=== PATIENT | male | born 1980 | race Caucasian/White ===

== ENCOUNTER 2019-07-30 18:40 | Emergency (ER) | payer OTHER, SELFPAY ==
[2019-07-30] VITALS (7 sets, daily range): BP systolic 117–152; BP diastolic 63–98; PULSE 75–96; RESP 13–28; TEMP 36.9; O2SAT 95–100
--- NOTE | ~2019-07-30 | XR_ITS ---
EXAMINATION: XR foot RT min 3V DATE: 07/30/2019 19:42 INDICATION: Medial right foot pain after walking for 2 hours TECHNIQUE: Dorsoplantar, two oblique and lateral views of the right foot were obtained. COMPARISON: None. FINDINGS: Alignment is normal. No fracture. No periosteal reaction. 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 Small Achilles calcaneal spur. Soft tissues are unremarkable. IMPRESSION: 1. No acute osseous abnormality. Reviewed, dictated and finalized at location A.
--- NOTE | ~2019-07-30 | XR_ITS ---
EXAMINATION: XR wrist LT min 3V DATE: 07/30/2019 19:43 INDICATION: Medial left wrist pain TECHNIQUE: Posteroanterior, ulnar deviation, oblique, and lateral views of the left wrist were obtain ed. COMPARISON: none FINDINGS: 3 mm ulnar minus variance. Alignment is otherwise normal. No fracture. Joint spaces are normal. Soft tissues are unremarkable. IMPRESSION: 1. No acute osseous abnormality. Reviewed, dictated and finalized at location A.
--- NOTE | ~2019-07-30 | XR_ITS ---
EXAMINATION: XR foot LT min 3V DATE: 07/30/2019 19:43 INDICATION: Blister at the plantar surface of the left fourth toe TECHNIQUE: Dorsoplantar, two oblique and lateral views of the left foot were obtained. COMPARISON: None. FINDINGS: Alignment is normal. No cortical erosions or periosteal reaction. Small corticated ossicles near the tips of the medial and lateral malleoli, likely sequela of old trauma. No acute fracture. Mild osteoa rthritis at the first metatarsophalangeal joint. Soft tissues are unremarkable. IMPRESSION: 1. No acute osseous abnormality. Reviewed, dictated and finalized at location A.
--- NOTE | 2019-07-30 19:17 | ECG_ITS ---
Measurements Intervals [place] Rate: 88 P: 9 DC: 150 QRS: 57 QRSD: 113 T: 38 QT: 374 QTc: 454 Interpretive Statements SINUS RHYTHM INTRAVENTRICULAR CONDUCTION DELAY EARLY PRECORDIAL R/S TRANSITION MINIMAL Q WAVES- INFERIOR LEADS BORDERLINE ECG Electronically Signed On 07-31-2019 7:00:38 CDT by Harvinder Aguilar D.O.
--- NOTE | 2019-07-30 19:21 | PC.NURSE ---
Assumed care of pt at this time. Report from PRATEEK Mendez
--- NOTE | 2019-07-30 19:26 | ED.GENADULT ---
HPI - General Adult General Chief complaint: Unspecified Stated complaint: FOOT PAIN/ DEHYDRATION Time Seen by Provider: 07/30/19 19:00 Source: patient Mode of arrival: EMS Limitations: no limitations History of Present Illness HPI narrative: This patient is a 38 year old male who presents for evaluation of dehydration. He states his car broke down so he has been walking for 2 hours in order to get help. He states just prior to arrival he started to feel dizzy and his feet started to hurt so he called 911. He thinks that he is just overheated. He denies chest pain, shortness of breath , abdominal pain, nausea or vomiting. Related Data Allergies Allergy/AdvReac Type Severity Reaction Status Date / Time CYCLOBENZAPRINE HCL Allergy Unknown Unknown Uncoded 07/30/19 19:02 Review of Systems Review of Systems: All systems reviewed & are unremarkable except as noted in HPI and below Constitutional: Constitutional: Denies chills, Denies fever(s) and Reports weakness ENT: Reports dizziness Cardiovascular: Cardiovascular: Denies chest pain Respiratory: Respiratory: Denies cough and Denies dyspnea Gastrointestinal: Gastrointestinal: Denies abdominal pain, Denies nausea and Denies vomiting Musculoskeletal: Musculoskeletal: Reports arthralgias PMFSH Past Medical History Medical History (Updated 07/31/19 @ 00:00 by Kei Lau) Hepatitis C Surgical History Surgical History (Updated 07/30/19 @ 19:26 by Annalise Kumar MD) History of liver biopsy Social History Social History (Updated 07/30/19 @ 19:27 by Annalise Kumar MD) Smoking packs per day: 1 Smoking cigarettes per day: 20.0 Smoking status: Current every day smoker Alcohol intake: never Substance use type: amphetamines Last use: yesterday Gender identity (if verbalized by the patient): Male Exam Narrative: Exam Narrative: GENERAL: Well-appearing, well-nourished, and in no acute distress. HEAD: Normocephalic, atraumatic EYES: PERRLA and EOMI, conjunctiva clear without discharge THROAT:Mucous membranes moist, Oropharynx normal without erythema, exudate, peritonsillar swelling or fluctuance NECK: Supple, without lymphadenopathy or mass RESPIRATORY: No respiratory distress, Airway patent, Respirations non-labored, Clear to auscultation without rales, rhonchi or wheeze HEART: Regular rate and rhythm. No murmur heard. Normal peripheral pulses. ABDOMEN: Soft, nontender, nondistended, normal active bowel sounds. No masses. No rebound or guarding, No organomegaly. EXTREMITIES: No edema, normal strength with full range of motion. SKIN: Warm, dry, normal color without rash NEURO: Alert and oriented x3. CN 2-12 grossly intact. No focal deficits. PSYCH: Normal mood and affect. Course Reevaluation(s) Reevaluation #1: PAtient has received 2 L IVF. Labs are unremarkable. I have discussed with patient and he states he has no further complaints. Date: 07/30/19 Time: 22:28 Vital Signs Vital signs: Vital Signs Temperature 98.5 F 07/30/19 18:55 Pulse Rate 96 07/30/19 18:55 Respiratory Rate 13 07/30/19 18:55 Blood Pressure 152/98 H 07/30/19 18:55 Pulse Oximetry 96 07/30/19 18:55 Temperature 98.5 F 07/30/19 18:55 Pulse Rate 87 07/30/19 22:40 Respiratory Rate 15 07/30/19 22:40 Blood Pressure 117/63 07/30/19 22:40 Pulse Oximetry 95 07/30/19 22:40 Medical Decision Making Vital Signs Vital Signs: Vital Signs Temperature 98.5 F 07/30/19 18:55 Pulse Rate 96 07/30/19 18:55 Respiratory Rate 13 07/30/19 18:55 Blood Pressure 152/98 H 07/30/19 18:55 Pulse Oximetry 96 07/30/19 18:55 Temperature 98.5 F 07/30/19 18:55 Pulse Rate 87 07/30/19 22:40 Respiratory Rate 15 07/30/19 22:40 Blood Pressure 117/63 07/30/19 22:40 Pulse Oximetry 95 07/30/19 22:40 Lab Data Lab results reviewed: Yes I reviewed the patient's lab results. Result diagrams: 07/30/19 19:
--- NOTE | 2019-07-30 19:30 | PC.NURSE ---
Asked pt for urine sample. pt states It's gonna be a while.
--- NOTE | 2019-07-30 19:40 | PC.NURSE ---
Provided pt w/ urinal and asked for urine sample.
[2019-07-30 19:46] LABS: Alanine Aminotransferase 22 U/L (4-50); Albumin Level 4.1 g/dL (3.5-5.1); Alkaline Phosphatase 89 U/L (38-126); Aspartate Amino Transferase 28 U/L (17-59); Bilirubin,Total 0.1 mg/dL (0.2-1.3); Blood Urea Nitrogen 11 mg/dL (9-20); Carbon Dioxide 26 mmol/L (22-30); Chloride 103 mmol/L (98-107); Creatine Kinase 341 U/L (55-170); Estimated CRCL calculation 135 ml/min; Estimated Glomerular Filt Rate > 60; Glucose 150 mg/dL (75-110); Magnesium 2.2 mg/dL (1.6-2.3); Potassium 3.4 mmol/L (3.4-5.0); Sodium 140 mmol/L (137-145)
[2019-07-30 19:57] LABS: Basophils Absolute Auto 0.1 K/mm3 (0.0-0.1); Basophils Percent Auto 0.5 % (0.2-1.2); Eosinophils Absolute Auto 0.2 K/mm3 (0-0.3); Eosinophils Percent Auto 1.6 % (0-4.4); Hematocrit 40.9 % (42.0-52.0); Hemoglobin 13.9 g/dL (14.0-18.0); Immature Granulocyte Absolute 0.04 K/mm3 (0.00-0.031); Immature Granulocyte Percent A 0.4 % (0-0.5); Lymphocytes Absolute Auto 2.63 K/mm3 (0.9-3.2); Lymphocytes Percent Auto 25.9 % (18.3-44.2); Mean Corpuscular Hemoglobin 29.3 pg (26-34); Mean Corpuscular Volume 86.1 fl (80-100); Mean Platelet Volume 10.1 fl (7.4-10.4); Monocytes Absolute Auto 0.6 K/mm3 (0.1-0.6); Neutrophils Absolute Auto 6.7 K/mm3 (1.3-6.7); Neutrophils Percent Auto 65.6 % (45.5-73.1); Platelet Count Result 302 k/mm3 (150-375); Red Blood Count 4.75 M/mm3 (4.6-6.20); White Blood Count 10.2 K/mm3 (4.5-10.0)
[2019-07-30] MEDS: LACTATED RINGERS 1,000 ML 999 ML IV CONT ×2 (20:03→21:30)
--- NOTE | 2019-07-30 20:06 | PC.NURSE ---
Pt states he still cannot give sample
[2019-07-30 20:47] LABS: Add Urine Microscopic? YES; Appearance Urine Clear (Clear); Bacteria Urine Trace /hpf; Bilirubin Urine Negative (Negative); Blood Urine Negative (Negative); Color Urine Yellow (Yellow); Glucose Urine UA Negative (Negative); Ketones Urine Negative (Negative); Leukocyte Esterase Ur Negative LEU/UL (Negative); Mucus Urine Few /lpf; Nitrate Urine Negative (Negative); Protein Urine 1+ mg/dL (Negative); Squamous Epithelial Cell Urine Rare /hpf (Few); WBC Urine 0-3 /hpf
[2019-07-30 20:53] LABS: Specific Grav Ur 1.032 (1.001-1.035)
== END 2019-07-30 22:40 | disposition home or self-care (01) ==
PROVIDERS: Emergency Provider General Practice
DX: T67.5XXA Heat exhaustion, unspecified, initial encounter (principal); E86.0 Dehydration; M79.672 Pain in left foot; M79.671 Pain in right foot; Z86.19 Personal history of other infectious and parasitic diseases; F17.210 Nicotine dependence, cigarettes, uncomplicated; I45.9 Conduction disorder, unspecified; R94.31 Abnormal electrocardiogram [ECG] [EKG]
CPT/HCPCS: 36415; 73110; 73630; 80053; 81001; 82550; 83735; 85025; 93005; 96360; 96361; 99284; J7120